=== PATIENT | female | born 1975 | race Caucasian/White ===

== ENCOUNTER 2017-11-27 17:46 | Emergency (ER) | payer BC ==
[~2017-11-27] VITALS: Ht 177.8 cm; Wt 59.0 kg
[~2017-11-27 17:46] MED LIST: LISI-607 PO
[2017-11-27 19:00] VITALS: BP 158/118
== END 2017-11-27 19:01 | disposition home or self-care (01) ==
LOC: ER 17:49
DX: S61.211A Laceration without foreign body of left index finger without damage to nail, initial encounter (principal); R56.9 Unspecified convulsions; I10 Essential (primary) hypertension; F41.9 Anxiety disorder, unspecified; K58.9 Irritable bowel syndrome, unspecified; F10.10 Alcohol abuse, uncomplicated; Z88.2 Allergy status to sulfonamides; Z60.2 Problems related to living alone; Y90.9 Presence of alcohol in blood, level not specified; W26.0XXA Contact with knife, initial encounter; Y93.89 Activity, other specified; Y92.000 Kitchen of unspecified non-institutional (private) residence as the place of occurrence of the external cause; Y99.8 Other external cause status
CPT/HCPCS: 12001; 99283; A4606; A6402; Z7610

== ENCOUNTER 2018-03-13 07:08 | Emergency (ER) | payer BC ==
[~2018-03-13] VITALS: Ht 177.8 cm; Wt 59.0 kg
--- NOTE | 2018-03-13 07:36 | NUR ---
PT BIB SELF C/O HIGH BLOOD PRESSURE, PT APPEARED ANXIOUS, PT IS AAOX4, NOT IN RESPIRATORY DISTRESS, HOOKED TO MONITOR, KEPT RESTED AND COMFORTABLE, AWAITING ER MD FOR EVAL.
--- NOTE | 2018-03-13 07:46 | NUR ---
SEEN AND EXAMINED BY YUMI BEAR
--- NOTE | 2018-03-13 08:03 | NUR ---
LABS DRAWNED AND SENT TO LAB. AWAITING RESULTS.
[2018-03-13 08:10] LABS: BASOPHILS % (AUTO) 0.7 % (0.0-2.0); EOSINOPHILS % (AUTO) 12.2 % (0.0-6.0); HEMATOCRIT 42 % (33-45); HEMOGLOBIN 14.3 g/dL (11.5-14.8); LYMPHOCYTES # (AUTO) 1.7 /CMM (0.8-4.8); LYMPHOCYTES % (AUTO) 39.7 % (20.0-44.0); MEAN CORPUSCULAR HGB CONC 34 g/dl (31.0-36.0); MEAN CORPUSCULAR VOLUME 101 fL (82-100); MONOCYTES # (AUTO) 0.7 /CMM (0.1-1.30); NEUTROPHILS # (AUTO) 1.4 /CMM (1.8-8.9); NEUTROPHILS % (AUTO) 32.4 % (43.0-81.0); PLATELET COUNT (AUTO) 173 /CMM (150-450); RED BLOOD CELL COUNT(AUTO) 4.12 MIL/uL (4.0-5.2); WHITE BLOOD COUNT (AUTO) 4.3 K/uL (4.3-11.0)
--- NOTE | 2018-03-13 08:10 | NUR ---
RADIOLOGY AT BEDSIDE FOR XRAY.
[2018-03-13] MEDS ORDERED: ALPR1TAB7 PO (08:12)
[2018-03-13] MEDS ORDERED: LEVE500T20 PO (08:12)
[2018-03-13] MEDS ORDERED: HYDR-3024 PO (08:12)
[2018-03-13 08:17] LABS: CALCIUM, SERUM 9.1 mg/dL (8.5-10.1); CREATININE 0.8 mg/dL (0.6-1.3); POTASSIUM 3.4 mmol/L (3.5-5.1)
[2018-03-13] MEDS ORDERED: IV NS 0.9% 1,000 ML BAG IV ONE (08:30)
[2018-03-13 08:52] LABS: EOSINOPHILS % (MANUAL) 9 % (0-4); LYMPHOCYTES % (MANUAL) 38 % (16-48); MONOCYTES % (MANUAL) 10 % (0-11.0); NEUTROPHILS % (MANUAL) 43 (42-76)
--- NOTE | 2018-03-13 08:56 | NUR ---
PANEL ON-CALLPAGED
[2018-03-13 09:11] LABS: ALBUMIN 4.5 g/dL (3.4-5.0); BILIRUBIN,DIRECT 0.2 mg/dL (0.0-0.2); BILIRUBIN,TOTAL 0.9 mg/dL (0.2-1.0); TOTAL PROTEIN, SERUM 8.5 g/dL (6.4-8.2)
--- NOTE | 2018-03-13 09:40 | NUR ---
URI[facility] FLOOR AT BEDSIDE FOR EVAL.
[2018-03-13] MEDS ORDERED: METOPROLOL TARTRATE 25 MG TABLET ONE (09:47)
[2018-03-13] MEDS ORDERED: METOPROLOL TARTRATE 25 MG TABLET PO ONE (10:00)
--- NOTE | 2018-03-13 11:48 | NUR ---
IV removed. Catheter intact and site benign. Pressure and 4x4 applied to site. No bleeding noted. Patient does not wish to proceed with medical care recommended by PA. Ibarra. Patient given information related to possible complications, up to and including , which could occur as a result of leaving the hospital at this time. Patient verbalizes understanding of risks involved due to leaving against medical advice. Patient has signed AMA form.
[2018-03-13 11:50] VITALS: BP 160/110
== END 2018-03-13 11:51 | disposition left against medical advice (07) ==
LOC: ER 07:10
DX: I10 Essential (primary) hypertension (principal); R79.89 Other specified abnormal findings of blood chemistry; F41.9 Anxiety disorder, unspecified; F10.10 Alcohol abuse, uncomplicated; R56.9 Unspecified convulsions; K58.9 Irritable bowel syndrome, unspecified; R00.0 Tachycardia, unspecified; Y90.9 Presence of alcohol in blood, level not specified; Z88.2 Allergy status to sulfonamides; Z60.2 Problems related to living alone
CPT/HCPCS: 36415; 71045; 80048; 80076; 83690; 84484 ×2; 85025; 85730; 87081; 93005; 99284; A4606; J7030; Z7610

== ENCOUNTER 2019-03-10 19:53 | Emergency (ER) | payer BC ==
[~2019-03-10] VITALS: Ht 177.8 cm; Wt 59.0 kg
[~2019-03-10 19:53] MED LIST changes: +ALPR1TAB7 PO; +HYDR-3642 PO; +LEVE500T20 PO; -LISI-607 PO
--- NOTE | 2019-03-10 20:18 | NUR ---
BIBS. COUGH AND CHECT CONGESTION X 4 DAYS. PAIN ON INSPIRATION, ON 2L O2 FOR COMFORT. MD AT BEDSIDE, PENDING BREATHING TX
[2019-03-10] MEDS ORDERED: IPRATROPIUM NEB FS 0.5 MG/2.5 ML AMPUL.NEB ONE (20:24)
[2019-03-10] MEDS ORDERED: ALBUTEROL FS 2.5 MG/3 ML VIAL.NEB ONE (20:24)
[2019-03-10] MEDS ORDERED: IPRATROPIUM NEB FS 0.5 MG/2.5 ML AMPUL.NEB NEB ONE (20:30)
[2019-03-10] MEDS ORDERED: methylPREDNISolone SOD SUCC 125 MG/2ML VIAL IV ONE (20:30)
[2019-03-10] MEDS ORDERED: IV NS 0.9% 1,000 ML BAG IV ONE (20:30)
[2019-03-10] MEDS ORDERED: ALBUTEROL FS 2.5 MG/3 ML VIAL.NEB CONTNEB ONE (20:30)
[2019-03-10] MEDS ORDERED: methylPREDNISolone SOD SUCC 125 MG/2ML VIAL ONE (20:34)
[2019-03-10] MEDS ORDERED: Magnesium 1GM/D5W 100ML PREMIX 200 ML IV ONE (20:34)
[2019-03-10] MEDS: Magnesium 1GM/D5W 100ML PREMIX 100 ML IV SCH ×2 (20:47→21:30)
[2019-03-10 22:09] VITALS: BP 146/108
--- NOTE | 2019-03-10 22:09 | NUR ---
Patient discharged to home in stable condition. Written and verbal after care instructions given. Patient verbalizes understanding of instruction.
== END 2019-03-10 22:10 | disposition home or self-care (01) ==
LOC: ER 19:53
DX: J45.909 Unspecified asthma, uncomplicated (principal); G40.909 Epilepsy, unspecified, not intractable, without status epilepticus; I10 Essential (primary) hypertension; F41.9 Anxiety disorder, unspecified; K58.9 Irritable bowel syndrome, unspecified; Z88.2 Allergy status to sulfonamides; Z88.8 Allergy status to other drugs, medicaments and biological substances; Z60.2 Problems related to living alone; Z79.899 Other long term (current) drug therapy
CPT/HCPCS: 71045; 94644; 96365; 96375; 99285; J2930; J3475; J7030